=== PATIENT | male | born 1950 | race Caucasian/White ===

== ENCOUNTER 2021-04-03 11:09 | Emergency (ER) | payer MEDICARE, BC ==
[~2021-04-03] VITALS: Ht 170.2 cm; Wt 104.9 kg
[2021-04-03] MEDS ORDERED: AMOX875T2 PO (11:19)
[2021-04-03] MEDS ORDERED: TADA5TAB PO (11:19)
[2021-04-03] MEDS ORDERED: METF-838 PO (11:19)
[2021-04-03] MEDS ORDERED: CLON0.5T2 PO (11:19)
[2021-04-03] MEDS ORDERED: VALS1TAB67 PO (11:19)
[2021-04-03] MEDS ORDERED: OMEP-218 PO (11:19)
[2021-04-03] MEDS ORDERED: BUPR300T92 PO (11:19)
[2021-04-03] MEDS ORDERED: PRED20TA PO (11:19)
[2021-04-03] MEDS ORDERED: ATOR1TAB21 PO (11:19)
[2021-04-03] MEDS ORDERED: TRAZ1TAB11 PO (11:19)
[2021-04-03] MEDS ORDERED: TAMS1CAP17 PO (11:19)
[2021-04-03] MEDS ORDERED: fentaNYL 100 MCG/2 ML INJECTION (J3010) IV ONE (12:35)
[2021-04-03] MEDS ORDERED: NS 1,000 ML IV SCH (12:35)
[2021-04-03] MEDS ORDERED: PIPERACILLIN/TAZOBACTAM SOD 3.375 GM in D5W MINI-BAG PLUS 50 ML IV ONE (13:00)
[2021-04-03 13:03] LABS: BASO % 0.2 % (0.0-1.0); EOS % 0.1 % (0.0-3.0); HEMATOCRIT 46.3 % (42.0-52.0); HEMOGLOBIN 15.2 g/dl (13.5-17.5); LYMPH # 1.2 10^3/uL (1.5-5.0); LYMPH % 12.1 % (24.0-44.0); MEAN CORPUSCULAR HGB CONC 32.8 g/dl (32.0-36.5); MEAN CORPUSCULAR VOLUME 91.3 fl (80.0-96.0); MONO # 0.6 10^3/uL (0.0-0.8); MONO % 5.8 % (2.0-8.0); NEUTROPHILS # 8.4 10^3/uL (1.5-8.5); NEUTROPHILS % 81.6 % (36.0-66.0); PLATELET COUNT, AUTOMATED 251 10^3/uL (150-450); RED BLOOD COUNT 5.07 10^6/uL (4.30-6.10); WHITE BLOOD COUNT 10.3 10^3/uL (4.0-10.0)
--- NOTE | 2021-04-03 13:04 | REP ---
INDICATION: r/o perforation Jerrica-En-Y. COMPARISON: None. TECHNIQUE: Three views FINDINGS: There is bilateral subdiaphragmatic air density. The frontal view the chest is otherwise unremarkable. Multiple mildly dilated gas-filled small bowel loops are seen. There are chronic osseous changes. IMPRESSION: There is evidence of free intraperitoneal air. These findings were discussed with Dr. Jesse iWlks at the time of this dictation. Critical Findings: The critical information above was relayed directly by me by telephone to Jesse Wilks on 04/03/2021 at 1:00 pm with readback verification. <Electronically signed by David Capps > 04/03/21 [id number]
[2021-04-03 13:18] LABS: ALBUMIN 3.2 GM/DL (3.2-5.2); ALT/SGPT 32 U/L (12-78); BILIRUBIN,DIRECT 0.3 MG/DL (0.0-0.2); BILIRUBIN,TOTAL 0.6 MG/DL (0.2-1.0); BLOOD UREA NITROGEN 25 MG/DL (7-18); CALCIUM LEVEL 9.1 MG/DL (8.8-10.2); CARBON DIOXIDE LEVEL 30 MEQ/L (21-32); CHLORIDE LEVEL 107 MEQ/L (98-107); CREATININE FOR GFR 0.79 MG/DL (0.70-1.30); GLOMERULAR FILTRATION RATE > 60.0 (>42); GLUCOSE, FASTING 148 MG/DL (70-100); LIPASE 64 U/L (73-393); SODIUM LEVEL 143 MEQ/L (136-145)
[2021-04-03 14:13] LABS: RSV AMPLIFICATION NEGATIVE (NEGATIVE)
[2021-04-03 18:14] VITALS: BP 173/84
== END 2021-04-03 18:17 | disposition short-term general hospital (02) ==
LOC: M ED 11:09
DX: K63.1 Perforation of intestine (nontraumatic) (principal); E11.9 Type 2 diabetes mellitus without complications; E78.5 Hyperlipidemia, unspecified; F33.9 Major depressive disorder, recurrent, unspecified; F42.9 Obsessive-compulsive disorder, unspecified; K21.9 Gastro-esophageal reflux disease without esophagitis; N52.9 Male erectile dysfunction, unspecified; Z88.8 Allergy status to other drugs, medicaments and biological substances; Z79.899 Other long term (current) drug therapy; Z79.84 Long term (current) use of oral hypoglycemic drugs
CPT/HCPCS: 74021; 80048; 80076; 83690; 85025; 87631; 96361; 96365; 96375; 99285; J2543; J3010

== ENCOUNTER 2021-05-18 15:50 | Emergency (ER) | payer MEDICARE, BC ==
[~2021-05-18] VITALS: Ht 170.2 cm; Wt 107.5 kg
[2021-05-18 15:50] VITALS: BP 140/66
[~2021-05-18 15:50] MED LIST: AMOX875T2 PO; ATOR1TAB21 PO; BUPR300T92 PO; CLON0.5T2 PO; METF-838 PO; OMEP-173 PO; PRED20TA PO; TADA5TAB PO; TAMS1CAP17 PO; TRAZ1TAB11 PO; VALS1TAB67 PO
== END 2021-05-18 20:04 | disposition home or self-care (01) ==
LOC: M ED 15:50
DX: S70.02XA Contusion of left hip, initial encounter (principal); S00.03XA Contusion of scalp, initial encounter; V49.40XA Driver injured in collision with unspecified motor vehicles in traffic accident, initial encounter; M51.36 Other intervertebral disc degeneration, lumbar region; M51.37 Other intervertebral disc degeneration, lumbosacral region; E11.9 Type 2 diabetes mellitus without complications; K21.9 Gastro-esophageal reflux disease without esophagitis; E78.5 Hyperlipidemia, unspecified; N40.0 Benign prostatic hyperplasia without lower urinary tract symptoms; F41.9 Anxiety disorder, unspecified; F32.A Depression, unspecified; Z88.8 Allergy status to other drugs, medicaments and biological substances; Z90.49 Acquired absence of other specified parts of digestive tract; Z79.84 Long term (current) use of oral hypoglycemic drugs; Z79.899 Other long term (current) drug therapy